=== PATIENT | male | born 1955 | race Caucasian/White ===

== ENCOUNTER 2023-11-24 08:39 | Day surgery (SDC) | payer BC ==
[2023-11-24] MEDS ORDERED: Glucagon,Human Recombinant 1 MG Vial IVPUSH ONE (09:10)
[2023-11-24 10:48] LABS: BASOPHILS ABSOLUTE AUTO 0.1 K/mm3 (0.0-0.2); BASOPHILS PERCENT AUTO 0.7 % (0.0-1.0); EOSINOPHILS PERCENT AUTO 0.4 % (0.0-6.0); HEMATOCRIT 46.1 % (42.0-52.0); HEMOGLOBIN 16.5 gm/dl (14.0-18.0); IMMATURE GRAN ABSOLUTE AUTO 0.02 K/mm3 (0.00-0.05); IMMATURE GRAN PERCENT AUTO 0.3 % (0.0-0.4); LYMPHOCYTES ABSOLUTE AUTO 1.3 K/mm3 (1.0-4.8); LYMPHOCYTES PERCENT AUTO 17.9 % (24.0-44.0); MEAN CORPUSCULAR HEMOGLOBIN 33.8 pg (28.0-32.0); MEAN CORPUSCULAR HGB CONC 35.8 g/dl (32.0-36.0); MEAN CORPUSCULAR VOLUME 94.5 fl (83.0-99.0); MEAN PLATELET VOLUME 9.7 fl (9.4-12.4); MONOCYTES ABSOLUTE AUTO 0.7 K/mm3 (0.0-0.8); MONOCYTES PERCENT AUTO 9.1 % (0.0-8.0); NEUTROPHILS ABSOLUTE AUTO 5.3 K/mm3 (1.8-7.7); NEUTROPHILS PERCENT AUTO 71.6 % (41.0-71.0); PLATELET COUNT,PLT 218 K/mm3 (150-400); RED BLOOD CELL COUNT 4.88 M/mm3 (4.52-5.90); WHITE BLOOD CELL COUNT,WBC 7.39 K/mm3 (3.9-11.3)
[2023-11-24 11:16] LABS: A/G RATIO 1.1 (1-2); ALBUMIN 3.9 g/dl (3.4-5.0); ANION GAP 16.7 (5-15); BILIRUBIN TOTAL 1.2 mg/dL (0.2-1.0); BUN/CREATININE RATIO 16.3 (14-18); CALCIUM 9.3 mg/dL (8.5-10.1); CREATININE 0.8 mg/dL (0.7-1.3); EST CRCL DRUG DOSING (CG) 95.43 mL/min; POTASSIUM,K 3.7 mEq/L (3.5-5.1); PROTEIN TOTAL,TP 7.5 g/dl (6.4-8.2)
[2023-11-24] MEDS ORDERED: fentaNYL 100 MCG/2 ML SDV ONE (11:53)
[2023-11-24] MEDS ORDERED: Succinylcholine 200 MG/10 ML MDV ONE (11:53)
[2023-11-24] MEDS ORDERED: Propofol 200 MG/20 ML SDV ONE (11:53)
[2023-11-24] MEDS ORDERED: Midazolam 1 MG/ML 2 ML SDV ONE (11:53)
[2023-11-24] MEDS ORDERED: Lidocaine 2% 5 ML SDV ONE (11:54)
[2023-11-24] MEDS ORDERED: HYDROmorphone 0.5 MG/0.5 ML Syringe IVPUSH PRN (12:33)
[2023-11-24] MEDS ORDERED: fentaNYL 100 MCG/2 ML SDV IVPUSH PRN (12:33)
[2023-11-24] MEDS ORDERED: Ondansetron 4 MG/2 ML SDV IVPUSH PRN (12:33)
[2023-11-24] MEDS ORDERED: Labetalol 100 MG/20 ML MDV ONE (12:45)
== END 2023-11-24 13:45 | disposition home or self-care (01) ==
LOC: JD.ED 08:39 → JD.SDS 09:54
PROVIDERS: ATTEND Specialist
DX: T18.108A Unspecified foreign body in esophagus causing other injury, initial encounter (principal)
CPT/HCPCS: 36415; 43247; 80053; 85025; 93005; 96374; 99285; J0330; J1610; J1921; J2250; J2704; J3010; 00731; 99284; J3490